=== PATIENT | female | born 1985 | race Caucasian/White ===

== ENCOUNTER 2017-03-23 08:18 | Inpatient (IN) | payer OTHER ==
[~2017-03-23] VITALS: Ht 152.4 cm; Wt 73.0 kg
[2017-03-23] MEDS ORDERED: OXYTOCIN 30 UNITS/LACT RINGERS 500 ML IV ONE (08:23)
[2017-03-23] MEDS ORDERED: RINGERS SOLUTION,LACTATED 1,000 ML IV SCH (08:23)
[2017-03-23] MEDS ORDERED: OXYTOCIN 30 UNITS/LACT RINGERS 500 ML IV SCH (08:23)
[2017-03-23] MEDS ORDERED: RINGERS SOLUTION,LACTATED 1,000 ML IV PRN (08:23)
[2017-03-23] MEDS ORDERED: METOCLOPRAMIDE HCL 5 MG/ML 2 ML VIAL IVP PRN (08:30)
[2017-03-23] MEDS ORDERED: CITRIC ACID/SODIUM CITRATE 30 ML SOLUTION UDCUP PO PRN (08:30)
[2017-03-23] MEDS ORDERED: OXYTOCIN 20 UNITS in RINGERS SOLUTION,LACTATED 1,000 ML IV ONE (09:00)
[2017-03-23] MEDS ORDERED: PREN1TAB80 PO (09:17)
[2017-03-23 09:21] VITALS: BP 117/70
[2017-03-23 09:46] LABS: BASOPHILS % (AUTO) 0.2 % (0.0-2.0); EOSINOPHILS % (AUTO) 0.7 % (1.0-6.0); HEMATOCRIT 40.8 % (36-46); LYMPHOCYTES # (AUTO) 1.9 K/uL (1.0-4.8); LYMPHOCYTES % (AUTO) 22.6 % (22.0-44.0); MEAN CORPUSCULAR HEMOGLOBIN 30.5 pg (26.0-34.0); MEAN CORPUSCULAR HGB CONC 34.4 G/dL (31.0-37.0); MEAN CORPUSCULAR VOLUME 88 fL (80-100); MONOCYTES # (AUTO) 0.7 K/uL (0.1-1.0); MONOCYTES % (AUTO) 7.9 % (2.0-9.0); NEUTROPHILS # (AUTO) 5.7 K/uL (1.8-7.7); NEUTROPHILS % (AUTO) 68.6 % (40.0-70.0); PLATELET COUNT (AUTO) 171 K/uL (150-450); RED BLOOD CELL COUNT(AUTO) 4.61 MIL/uL (4.00-5.20); RED CELL DISTRIBUTION WIDTH 13.8 % (11.5-14.5); WHITE BLOOD COUNT (AUTO) 8.4 K/uL (4.5-11.0)
[2017-03-23] MEDS ORDERED: DINOPROSTONE 10 MG VAGINAL SUPPOSITORY EC ONE (12:00)
[2017-03-23] MEDS ORDERED: OXYTOCIN 30 UNITS/LACT RINGERS 500 ML IV PRN (23:39)
[2017-03-24] MEDS: FentaNYL CITRATE-PF 100 MCG/2 ML VIAL IVP PRN ×2 (06:11→06:16)
[2017-03-24] MEDS ORDERED: FentaNYL/BUPIV 0.125%/NS/PF 200 ML ED ONE ×2 (07:33→21:00)
[2017-03-24] MEDS: OXYGEN THERAPY IH SCH ×3 (08:00→22:02)
[2017-03-24] MEDS ORDERED: FentaNYL/BUPIV 0.125%/NS/PF 200 ML ED PRN (08:12)
[2017-03-24] MEDS ORDERED: ONDANSETRON HCL 4 MG/2 ML VIAL IVP PRN (08:15)
[2017-03-24] MEDS ORDERED: DiphenhydrAMINE HCL 50 MG/ML VIAL IVP PRN (08:15)
[2017-03-24] MEDS: AMPICILLIN SODIUM 2 GM/NS 100 ML IV SCH (19:07)
[2017-03-24] MEDS ORDERED: SODIUM CHLORIDE 0.9% 100 ML ONE (21:56)
[2017-03-24] MEDS ORDERED: GENTAMICIN 100 MG/NACL ISO-OSM 50 ML IV SCH (23:00)
[2017-03-25] MEDS: AMPICILLIN SODIUM 2 GM/NS 100 ML IV SCH (00:56)
[2017-03-25] MEDS ORDERED: METHYLERGONOVINE MALEATE 0.2 MG/ML VIAL ONE (02:25)
[2017-03-25] MEDS ORDERED: ACETAMINOPHEN/CODEINE 300-30 MG TABLET PO PRN ×2 (02:45)
[2017-03-25] MEDS ORDERED: METHYLERGONOVINE MALEATE 0.2 MG/ML VIAL IM ONE (02:45)
[2017-03-25] MEDS ORDERED: BENZOCAINE 20%/MENTHOL 56 GM SPRAY CANISTER TP PRN (02:45)
[2017-03-25] MEDS ORDERED: LANOLIN 7 GM OINTMENT TP PRN (02:45)
[2017-03-25] MEDS ORDERED: GLYCERIN/WITCH HAZEL LEAF 40 PADS JAR TP PRN (02:45)
[2017-03-25] MEDS: MAGNESIUM HYDROXIDE SUSPENSION 30 ML UDCUP PO SCH ×2 (08:18→20:37)
[2017-03-25] MEDS: SENNA/DOCUSATE SODIUM 187-50 MG TABLET PO SCH ×2 (08:18→20:37)
[2017-03-25] MEDS: IBUPROFEN 600 MG TABLET PO PRN ×2 (08:19→17:00)
[2017-03-25 14:45] VITALS: BP 114/68
[2017-03-26] MEDS: IBUPROFEN 600 MG TABLET PO PRN ×2 (00:40→09:43)
[2017-03-26 08:26] LABS: BASOPHILS % (AUTO) 0.2 % (0.0-2.0); EOSINOPHILS % (AUTO) 0.4 % (1.0-6.0); HEMATOCRIT 39.2 % (36-46); HEMOGLOBIN 13.4 g/dL (12.0-16.0); LYMPHOCYTES % (AUTO) 10.6 % (22.0-44.0); MEAN CORPUSCULAR HEMOGLOBIN 30.9 pg (26.0-34.0); MEAN CORPUSCULAR HGB CONC 34.2 G/dL (31.0-37.0); MEAN CORPUSCULAR VOLUME 91 fL (80-100); MONOCYTES # (AUTO) 0.8 K/uL (0.1-1.0); MONOCYTES % (AUTO) 4.2 % (2.0-9.0); NEUTROPHILS # (AUTO) 15.7 K/uL (1.8-7.7); NEUTROPHILS % (AUTO) 84.6 % (40.0-70.0); RED BLOOD CELL COUNT(AUTO) 4.34 MIL/uL (4.00-5.20); RED CELL DISTRIBUTION WIDTH 14.2 % (11.5-14.5); WHITE BLOOD COUNT (AUTO) 18.6 K/uL (4.5-11.0)
[2017-03-26] MEDS: MAGNESIUM HYDROXIDE SUSPENSION 30 ML UDCUP PO SCH (09:44)
[2017-03-26] MEDS: SENNA/DOCUSATE SODIUM 187-50 MG TABLET PO SCH (09:44)
[2017-03-26] MEDS ORDERED: IBUP-2070 PO (09:57)
[2017-03-26] MEDS ORDERED: DSS100 PO (09:58)
[2017-03-26] MEDS: OXYGEN THERAPY IH SCH (10:53)
== END 2017-03-26 10:55 | disposition home or self-care (01) | DRG 775 ==
LOC: OBSVTOIN 08:18 → 4S 08:18
PROVIDERS: ADMIT Obstetrics & Gynecology; ATTEND Obstetrics & Gynecology
PROC: 10E0XZZ Delivery of Products of Conception, External Approach (ICD-10-PCS; principal; 2017-03-25)
PROC: 0KQM0ZZ Repair Perineum Muscle, Open Approach (ICD-10-PCS; 2017-03-25)
PROC: 0W8NXZZ Division of Female Perineum, External Approach (ICD-10-PCS; 2017-03-25)
PROC: 10907ZC Drainage of Amniotic Fluid, Therapeutic from Products of Conception, Via Natural or Artificial Opening (ICD-10-PCS; 2017-03-25)
PROC: 3E0S3CZ (ICD-10-PCS; 2017-03-25)
PROC: 00HU33Z Insertion of Infusion Device into Spinal Canal, Percutaneous Approach (ICD-10-PCS; 2017-03-25)
DX: O77.0 Labor and delivery complicated by meconium in amniotic fluid (principal); Z37.0 Single live birth; O70.1 Second degree perineal laceration during delivery; Z3A.41 41 weeks gestation of pregnancy
CPT/HCPCS: 85461; 86850; 86870; 86900; 86901; J0290; J1580; J2210; J2405; J2590; J3010; J3490; J7050; J7120